=== PATIENT | female | born 1960 | race Hispanic/Latino ===

== ENCOUNTER 2018-03-21 23:59 | Emergency (ER) | payer OTHER ==
[2018-03-22 00:12] VITALS: RESP 20; O2SAT 98
[2018-03-22] MEDS ORDERED: Sodium Chloride 0.9% 500 ML IV ONE (01:02)
[2018-03-22] MEDS ORDERED: Sodium Chloride 0.9% 1,000 ML ONE (01:17)
[2018-03-22 01:18] LABS: BASO # 0.1 K/uL (0.0-0.2); BASO % 1.5 % (0.0-2.0); EOS # 0.3 K/uL (0.0-0.7); EOS % 3.4 % (0.0-4.0); HEMOGLOBIN 12.7 g/dL (11.0-16.0); LYMPH # 3.1 K/uL (1.0-4.3); LYMPH % 38.4 % (20.0-40.0); MEAN CORPUSCULAR HEMOGLOBIN 23.6 pg (27.0-31.0); MEAN CORPUSCULAR HGB CONC 32.8 g/dL (33.0-37.0); MEAN PLATELET VOLUME 8.5 fL (7.2-11.7); MONO # 0.6 K/uL (0.0-0.8); MONO % 7.1 % (0.0-10.0); NEUT # 4.1 K/uL (1.8-7.0); NEUT % 49.6 % (50.0-75.0); NRBC % 0.1 % (0.0-2.0); RBC 5.37 Mil/uL (3.80-5.20); RED CELL DISTRIBUTION WIDTH 15.8 % (11.5-14.5); WHITE BLOOD COUNT 8.2 K/uL (4.8-10.8)
[2018-03-22 01:41] LABS: ALB/GLOB RATIO 1.3 (1.0-2.1); ALBUMIN 3.8 g/dL (3.5-5.0); ALT/SGPT 17 U/L (9-52); AST/SGOT 22 U/L (14-36); BLOOD UREA NITROGEN 16 mg/dL (7-17); CALCIUM 8.7 mg/dl (8.6-10.4); GFR AFRICAN-AMERICAN > 60; GFR NON-AFRICAN AMERICAN > 60
[2018-03-22 02:03] LABS: SQUAMOUS EPITHIAL 4 /hpf (0-5); URINE BILIRUBIN NEGATIVE (NEGATIVE); URINE BLOOD 1+ (NEGATIVE); URINE CLARITY Clear (Clear); URINE COLOR Yellow (YELLOW); URINE GLUCOSE (UA) NORMAL (Normal); URINE LEUKOCYTE ESTERASE 1+ Leu/uL (Negative); URINE PROTEIN NEGATIVE (NEGATIVE); URINE UROBILINOGEN NORMAL mg/dL (0.2-1.0)
[2018-03-22] MEDS ORDERED: Tramadol 25 mg PO STA (02:29)
--- NOTE | 2018-03-22 04:04 | CT ---
EXAM: CT Abdomen and Pelvis Without Intravenous Contrast EXAM DATE/TIME: 03/22/2018 2:28 AM CLINICAL HISTORY: 57 years old, female; Pain; Abdominal pain; Additional info: R flank pain TECHNIQUE: Axial computed tomography images of the abdomen and pelvis without intravenous contrast. All CT scans at this facility use one or more dose reduction techniques, viz.: automated exposure control; ma/kV adjustment per patient size (including targeted exams where dose is matched to indication; i.e. head); or iterative reconstruction technique. Coronal and sagittal reformatted images were created and reviewed. COMPARISON: No relevant prior studies available. FINDINGS: LUNG BASES: No significant abnormality seen. ABDOMEN: LIVER: No acute abnormality of the liver identified. GALLBLADDER AND BILE DUCTS: No CT evidence of acute cholecystitis. No evidence of significant biliary ductal dilatation. PANCREAS: No CT evidence of acute pancreatitis. SPLEEN: No acute abnormality of the spleen identified. ADRENALS: Bilateral adrenal lesions, the larger, on the left, measuring 2.[address] features most compatible with bilateral benign adenomas. No followup is warranted based on the imaging findings. KIDNEYS AND URETERS: No acute abnormality of the kidneys seen. No renal stones, hydronephrosis, or hydroureter seen. STOMACH AND BOWEL: Colonic diverticulosis, with no evidence of acute diverticulitis. Otherwise, no significant abnormality of the bowel is identified. No evidence of bowel obstruction. PELVIS: APPENDIX: Appendix is seen, and is within normal limits in appearance. BLADDER: No acute abnormality of the bladder identified. REPRODUCTIVE:No acute abnormality of the reproductive organs is seen. No acute abnormality of the uterus identified. No evidence of large adnexal masses. ABDOMEN and PELVIS: INTRAPERITONEAL SPACE: No evidence of free intraperitoneal air or fluid. BONES/JOINTS: No acute fractures or other acute bony abnormality noted. SOFT TISSUES: Postsurgical scarring involving the anterior pelvic wall. VASCULATURE: No evidence of abdominal aortic aneurysm. No evidence of periaortic hemorrhage. LYMPH NODES: No evidence of diffuse lymphadenopathy. IMPRESSION: - No evidence of significant acute process on this unenhanced exam. No definite cause for pain identified. - See above for remaining findings.
--- NOTE | 2018-03-22 04:28 | C.PDOC ---
History Of Present Illness 57 year old female presents to the ED for evaluation of lower back pain which began 1 week ago. Patient notes the pain has progressed to her right flank region. She took 600mg of Ibuprofen without significant relief. She denies fever , chills, nausea, vomiting, diarrhea, dysuria, hematuria, urinary/bowel incontinence, extremity numbness/weakness. Time Seen by Provider: 03/22/18 00:50 Chief Complaint (Nursing): Back Pain History Per: Patient History/Exam Limitations: no limitations Onset/Duration Of Symptoms: Other (1 week) Current Symptoms Are (Timing): Still Present Quality Of Discomfort: "Pain" Previous Symptoms: Back Pain (lower) Associated Symptoms: denies: Incontinence, New Weakness, New Numbness Additional History Per: Patient Past Medical History Reviewed: Historical Data, Nursing Documentation, Vital Signs Vital Signs: Last Vital Signs Temp 98.1 F 03/22/18 04:51 Pulse 70 03/22/18 04:51 Resp 20 03/22/18 04:51 BP 132/70 03/22/18 04:51 Pulse Ox 98 03/22/18 04:51 - Medical History PMH: No Chronic Diseases Surgical History: No Surg Hx Family History: States: Unknown Family Hx - Social History Hx Alcohol Use: No Hx Substance Use: No - Immunization History Hx Tetanus Toxoid Vaccination: No Hx Influenza Vaccination: No Hx Pneumococcal Vaccination: No Review Of Systems Constitutional: Negative for: Fever, Chills Gastrointestinal: Negative for: Nausea, Vomiting, Diarrhea Genitourinary: Positive for: Other (right flank pain ). Negative for: Incontinence Musculoskeletal: Positive for: Back Pain (lower) Neurological: Negative for: Weakness, Numbness Physical Exam - Physical Exam Appears: Non-toxic, No Acute Distress Skin: Normal Color, Warm, Dry Head: Atraumatic, Normacephalic Eye(s): bilateral: Normal Inspection Oral Mucosa: Moist Neck: Supple Chest: Symmetrical, No Deformity, No Tenderness Cardiovascular: Rhythm Regular, No Murmur Respiratory: Normal Breath Sounds, No Rales, No Rhonchi, No Wheezing Gastrointestinal/Abdominal: Soft, No Tenderness, No Guarding, No Rebound Back: No Vertebral Tenderness, No Paraspinal Tenderness (lumbar), No Straight Leg Raising (negative, bilaterally ), Other (left flank tenderness ) Extremity: Normal ROM, Capillary Refill (less than 2 seconds ) Neurological/Psych: Oriented x3, Normal Speech, Normal Cognition, Normal Sensation ED Course And Treatment - Laboratory Results Result Diagrams: 03/22/18 01:14 03/22/18 01:14 O2 Sat by Pulse Oximetry: 98 (on RA) Pulse Ox Interpretation: Normal - CT Scan/US CT A/P Other Rad Studies (CT/US): Read By Radiologist, Radiology Report Reviewed CT/US Interpretation: EXAM: CT Abdomen and Pelvis Without Intravenous Contrast. EXAM DATE/TIME: 03/22/2018 2:28 AM. CLINICAL HISTORY: 57 years old , female; Pain; Abdominal pain; Additional info: R flank pain. TECHNIQUE: Axial computed tomography images of the abdomen and pelvis without intravenous contrast. All CT. scans at this facility use one or more dose reduction techniques, viz.: automated exposure control;. ma/kV adjustment per patient size (including targeted exams where dose is matched to indication; i.e. head) ; or iterative reconstruction technique. Coronal and sagittal reformatted images were created and reviewed. COMPARISON: No relevant prior studies available. FINDINGS: LUNG BASES: No significant abnormality seen. ABDOMEN: LIVER: No acute abnormality of the liver identified. GALLBLADDER AND BILE DUCTS : No CT evidence of acute cholecystitis. No evidence of. significant biliary ductal dilatation. PANCREAS: No CT evidence of acute pancreatitis. SPLEEN: No acute abnormality of the spleen identified.ADRENALS: Bilateral adrenal lesions, the larger, on the left, measuring 2.[address] features most compatible with bilateral benign adenomas. No followup is warranted based on the. imaging findings. KIDNEYS AND URETERS: No acute abnormality of the kidneys seen. No renal stones,. hydronephrosis, or hydroureter seen. STOMACH AND BOWEL: Colonic diverticulosis, with no evidence of acute diverticulitis. Otherwise,. no significant abnormality of the bowel is identified. No evidence of bowel obstruction. PELVIS: APPENDIX: Appendix is seen, and is within normal limits in appearance. BLADDER: No acute abnormality of the bladder identified. REPRODUCTIVE:No acute abnormality of the reproductive organs is seen. No acute abnormality of. the uterus identified. No evidence of large adnexal masses. ABDOMEN and PELVIS: INTRAPERITONEAL SPACE: No evidence of free intraperitoneal air or fluid. BONES/JOINTS: No acute fractures or other acute bony abnormality noted. SOFT TISSUES: Postsurgical scarring involving the anterior pelvic wall. VASCULATURE: No evidence of abdominal aortic aneurysm. No evidence of periaortic. hemorrhage. LYMPH NODES: No evidence of diffuse lymphadenopathy. IMPRESSION: - No evidence of significant acute process on this unenhanced exam. No definite cause for. pain identified. - See above for remaining findings. Progress Note: Bloodwork, urinalysis, and CT A/P ordered and reviewed. Toradol IVP, Ultram PO, and IV Fluids administered. On re-examination, patient is resting comfortably, showing no signs of distress and reports an improvement in her symptoms. Patient is ambulatory in the ED without distress and is stable for discharge. Patient is advised to f/u with her PMD within 1-2 days for further evaluation and/or return to the ED if symptoms persist or worsen. Disposition Counseled Patient/Family Regarding: Diagnosis, Need For Followup, Rx Given - Disposition Referrals: [facility] [Outside] Disposition: HOME/ ROUTINE Disposition Time: 04:30 Condition: STABLE Additional Instructions: Please follw up in clinic Take meds as directed Return to ER if worse Prescriptions: Methocarbamol [Robaxin-750] 750 mg PO BID #10 tab Naproxen [Naprosyn] 1 tab PO BID PRN #20 tab PRN Reason: Pain Sulfamethoxazole/Trimethoprim [Bactrim DS 800 mg-160 mg] 1 tab PO BID #14 tab Instructions: Urinary Tract Infection, Adult (DC), Flank Pain (DC) Forms: [employer] (Urdu) Print Language: THAI - Clinical Impression Clinical Impression: Back pain, UTI (urinary tract infection) - PA / NET DEVELOPER / Resident Statement MD/DO has reviewed & agrees with the documentation as recorded. - Scribe Statement The provider has reviewed the documentation as recorded by the Scribe (Allyson Weaver) All medical record entries made by the Scribe were at my direction and personally dictated by me. I have reviewed the chart and agree that the record accurately reflects my personal performance of the history, physical exam, medical decision making, and the department course for this patient. I have also personally directed, reviewed, and agree with the discharge instructions and disposition.
[2018-03-22 04:52] VITALS: BP 132/70; PULSE 70; TEMP 98.1
== END 2018-03-22 04:52 | disposition home or self-care (01) ==
LOC: C.ER 23:59
DX: N39.0 Urinary tract infection, site not specified (principal); M54.5 Low back pain
CPT/HCPCS: 74176; 80053; 81001; 85025; 96374; 99285; J1885; J7040